=== PATIENT | male | born 1950 | race Two or more races ===

== ENCOUNTER 2018-01-12 06:07 | Emergency (ER) | payer OTHER ==
[~2018-01-12] VITALS: Ht 167.6 cm; Wt 81.6 kg
[~2018-01-12 06:07] MED LIST: ALPRAZOLAM0.25 MG; AMBIEN5 MG PO; ASA81 MG; CARVEDILOL12.5 MG; CRESTOR10 MG; EFFIENT10 MG; FINASTERIDE1 MG; HALOPERIDOL2 MG; PAROXETINE HCL30 MG; PAXIL20 MG PO; RAMIPRIL5 MG; RANITIDINE HCL150 MG; XANAX0.25 MG PO; XIPRESA
== END 2018-01-12 12:24 | disposition home or self-care (01) ==
LOC: ER 06:07
DX: J11.1 Influenza due to unidentified influenza virus with other respiratory manifestations (principal)

== ENCOUNTER → 2018-01-20 | Emergency (ER) | payer OTHER ==
[~2018-01-20] VITALS: Ht 170.2 cm; Wt 81.6 kg
== END | disposition home or self-care (01) ==
LOC: ER 13:42
DX: J20.9 Acute bronchitis, unspecified (principal)